=== PATIENT | female | born 1945 | race Caucasian/White ===

== ENCOUNTER 2018-12-05 08:34 | Emergency (ER) | payer MEDICARE, OTHER ==
[~2018-12-05] VITALS: Ht 157.5 cm; Wt 63.6 kg
[2018-12-05] MEDS ORDERED: morphine 4 MG/ML VIAL IV STA (08:43)
[2018-12-05] MEDS ORDERED: ONDANSETRON 4 MG INJ IV STA (08:43)
[2018-12-05 08:45] VITALS: Ht 157.5 cm; Wt 63.6 kg
[2018-12-05] MEDS ORDERED: HYDROmorphONE 0.5 MG/0.5 ML SYG IV STA (08:55)
[2018-12-05] MEDS ORDERED: LORAZEPAM 2 MG INJ IV ONE (09:00)
[2018-12-05] MEDS ORDERED: CETI10TA34 PO (09:36)
[2018-12-05] MEDS ORDERED: COLC0.6T6 PO (09:36)
[2018-12-05] MEDS ORDERED: METO25TA4 PO (09:37)
[2018-12-05] MEDS ORDERED: LISI-313 PO (09:37)
[2018-12-05] MEDS ORDERED: APIX5TAB PO (09:38)
--- NOTE | 2018-12-05 10:00 | ERD ---
ER Documentation Chief Complaint Chief Complaint headache with neck pain x 1 month with chest pain since last night HPI During the patient's encounter translation services were utilized Language: [Yoruba] Source: [in person] 73-year-old female who presents to the emergency room with multiple complaints. The patient's main complaint is a headache. She describes gradual onset occipital headache that is dull and throbbing that started last night. Patient was at a facility trying to obtain an ultrasound of the abdomen when the nurse called 911 for the patient. She potentially noted some chest pain though only states that it is sharp and pinpoint and worse to touch on the right side of the chest. She denies pleuritic pain fevers chills or cough. No exertional symptoms no diaphoresis or nausea. Patient has had chronic symptoms of chest, back, head pain and neck pain for greater than 1 month. The patient has docu mentation that shows a prior history of A. 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 Headache is mild to moderate at this time, throbbing and 5 out of 10. ROS All systems reviewed and are negative except as per history of present illness. Medications Home Meds Reported Medications Apixaban* (Eliquis*) 5 Mg Tablet, 5 MG PO BID, TAB 12/05/18 Metoprolol Tartrate* (Lopressor*) 25 Mg Tablet, 25 MG PO BID, #60 TAB 12/05/18 Lisinopril* (Lisinopril*) 5 Mg Tablet, 5 MG PO DAILY, #30 TAB 12/05/18 Colchicine* (Colcrys*) 0.6 Mg Tablet, 0.6 MG PO BID, TAB 12/05/18 Cetirizine Hcl* (Cetirizine Hcl*) 10 Mg Tab.chew, 10 MG PO DAILY, #30 TAB 12/05/18 Allergies Allergies: Coded Allergies: morphine (Verified Allergy, Severe, TOXIC , 12/05/18) PER PT SISTER FROM SOB FROM MORPHINE Penicillins (Verified Adverse Reaction, Severe, ABDOMINAL PAIN, 12/05/18) PER PT PMhx/Soc History of Surgery: Yes (PACEMAKER) Anesthesia Reaction: No Hx Neurological Disorder: No Hx Respiratory Disorders: No Hx Cardiac Disorders: Yes (PAROXYSMAL AFIB, SSS, HTN, SYNCOPE) Hx Psychiatric Problems: No Hx Miscellaneous Medical Probl: Yes (CIRRHOSIS, AUTOIMMUNE HEPATITIS, THROMBO CYTOPENIA, GERD, FIBROIDS) Hx Alcohol Use: No Hx Substance Use: No Hx Tobacco Use: No Smoking Status: Never smoker FmHx Family History: No diabetes Physical Exam Vitals Vital Signs Date Temp Pulse Resp B/P (MAP) Pulse Ox O2 O2 Flow FiO2 Time Delivery Rate 12/05/18 Nasal 2 08:45 Cannula 12/05/18 98.7 70 16 103/51 98 08:45 (68) Physical Exam General: Well developed, well nourished, no acute distress Head: Normocephalic, atraumatic. Eyes: Pupils equally reactive, EOM intact ENT: Moist mucous membranes Neck: Supple, no lymphadenopathy Respiratory: Lungs clear bilaterally, no distress Cardiovascular: RRR, no murmurs, rubs, or gallops Abdominal: Soft, non-tender, non-distended, no peritoneal signs : Deferred MSK: No edema, no unilateral swelling, 5/5 strength Neurologic: Alert and oriented, moving all extremities, normal speech, no focal weakness, no cerebellar signs, no meningismus Skin: No rash Psych: Normal mood with mild anxiety Result Diagram: 12/05/18 0856 12/05/18 0856 Results 24 hrs Laboratory Tests Test 12/05/18 08:56 White Blood Count 4.1 10^3/ul Red Blood Count 4.55 10^6/ul Hemoglobin 14.4 g/dl Hematocrit 43.0 % Mean Corpuscular Volume 94.5 fl Mean Corpuscular Hemoglobin 31.6 pg Mean Corpuscular Hemoglobin Concent 33.5 g/dl Red Cell Distribution Width 14.0 % Platelet Count 62 10^3/UL Mean Platelet Volume 10.1 fl Immature Granulocytes % 0.200 % Neutrophils % 75.9 % Lymphocytes % 11.7 % Monocytes % 11.5 % Eosinophils % 0.5 % Basophils % 0.2 % Nucleated Red Blood Cells % 0.0 /100WBC Immature Granulocytes # 0.010 10^3/ul Neutrophils # 3.1 10^3/ul Lymphocytes # 0.5 10^3/ul Monocytes # 0.5 10^3/ul Eosinophils # 0.0 10^3/ul Basophils # 0.0 10^3/ul Nucleated Red Blood Cells # 0.0 10^3/ul Sodium Level 142 mmol/L Potassium Level 3.9 mmol/L Chloride Level 106 mmol/L Carbon Dioxide Level 28 mmol/L Anion Gap 8 Blood Urea Nitrogen 13 mg/dl Creatinine 0.74 mg/dl Est Glomerular Filtrat Rate mL/min mL/min Glucose Level 123 mg/dl Calcium Level 9.9 mg/dl Troponin I < 0.012 ng/ml Current Medications Medications Dose Sig/Karen Start Time Status Last (Trade) Ordered Route PRN Stop Time Admin Dose Reason Admin Morphine 4 mg ONCE STAT 12/05/18 DC Sulfate IV 08:43 (morphine) 12/05/18 08:56 Ondansetron 4 mg ONCE STAT 12/05/18 DC 12/05/18 HCl (Zofran IV 08:43 09:12 Inj) 12/05/18 08:44 Lorazepam 0.5 mg ONCE ONCE 12/05/18 DC 12/05/18 (Ativan) IV 09:00 09:12 12/05/18 09:01 0.5 mg ONCE STAT 12/05/18 DC 12/05/18 Hydromorphone IV 08:55 09:12 HCl 12/05/18 08:56 (Dilaudid) Procedures/MDM EKG, MONITORS, & DIAGNOSTIC IMAGING: EKG: I reviewed and interpreted a 12-lead EKG. Rhythm: Normal sinus rhythm ST Changes: No contiguous ST segment elevations T waves: No contiguous T wave inversions Impression: No evidence of acute cardiac ischemia Chest x-ray: I reviewed and interpreted a 1 view of the chest Mediastinum: No enlargement Cardiac silhouette: No cardiomegaly Airspace: Clear lung hong bilaterally without evidence of pneumothorax Bones: No evidence of fracture CTB IMPRESSION: 1. No acute intracranial hemorrhage, transcortical infarction or mass effect. 2. Mild intracranial atherosclerosis and chronic small vessel ischemic changes. 3. Partially empty sella turcica. 4. Mild generalized cerebral volume loss. RPTAT: HFN CXR IMPRESSION: Mild to moderate Cardiomegaly. per radiology read LAB INTERPRETATION: I reviewed the laboratory testing and it shows no evidence of acute process MEDICAL DECISION MAKING: The patient is a multitude of nonspecific complaints. Her main complaint is a headache. The patient states that she asked for a pain pill at the facility but they called 911. She feels strongly about not being admitted to the hospital given that she was recently admitted with thorough workup. Her chest pain is very nonspecific and reproducible. She states a chronic history of this. I do not believe this is consistent with pulmonary embolism dissection or acute coronary syndrome. The patient will benefit from EKG and troponin but I do not believe serial enzymes or inpatient hospitalization is necessary given extremely low pretest probability and chronic symptoms. The patient's headache is unlikely related to serious etiology. The patient does not exhibit any clinical signs or symptoms, and has no risk factors to suggest headache etiology such as subarachnoid hemorrhage, acute vertebral or carotid dissection, intracranial mass, epidural, subdural hematoma, dural venous sinus thrombosis, giant cell arteritis, or pseudotumor cerebri. The patient does have a history of anticoagulation use and headache, CT of the brain would be appropriate. Anxiety symptoms to be playing a role the patient agrees. ER COURSE: * The patient was given pain medication and anxiolysis with dramatic improvement. She is now resting and sleeping comfortably. Headache is improved. * Her laboratory testing and diagnostic imaging showed no evidence of endorgan dysfunction or acute process. * All the patient does have a number of chronic disease that she is appropriately being followed up on an outpatient basis. Her presentation today is not consistent with an emergent medical condition that warrants hospitalization. I believe the patient can be safely discharged with close primary care follow-up. Return precautions were discussed and understood. CONSULTATION: None DISPOSITION PLAN: The patient does not have an identifiable emergent medical condition that warrants inpatient hospitalization at this time. The patient is deemed safe for discharge with outpatient follow-up. We discussed follow up with the patient's primary care doctor within 24 to 48 hours as needed. We also discussed return to the emergency room for worsening symptoms or worsening condition. Outpatient referral: None required Discharge Medications: Continue home medications Departure Diagnosis: Primary Impression: Headache Headache type: unspecified Headache chronicity pattern: acute headache Intractability: not intractable Qualified Codes: R51 - Headache Additional Impressions: History of cirrhosis Thrombocytopenia Chest wall pain Condition: Stable Patient Instructions: Self-Care for Headaches Ref[facility] Usted se vargas hecho un examen mdico de control que le indica que no est en steven condicin que requiera tratamiento urgente en el Departamento de Emergencia. Un estudio ms profundo y el tratamiento de cruz condicin pueden esperar sin ningn riesgo hasta que usted sea atendida/o en el consultorio de cruz mdico o steven cl mars. Es responsabilidad suya arreglar steven maty para el seguimiento del natasha. MANEJO DE CONDICIONES NO URGENTES EN EL FUTURO 1) Si usted tiene un mdico de atencin primaria: Usted debera llamar a cruz mdico de atencin primaria antes de venir al departamento de emergencia. Despus de las horas de consultorio, cruz doctor o cruz asociado/a est disponible por telfono. El mdico o enfermero de steff en el servicio telefnico puede asesorarle por mariela medio para atender el problema, o natasha contrario se puede programar steven maty. 2) Si usted no tiene un mdico de atencin primaria: Llame al mdico o clnica de referencia que aparece abajo mya las horas de consultorio para hacer steven maty para que le vean. CLINICAS: [facility] [phone] [facility] [phone] [facility]. [facility] [phone] [facility]. [place] [address] [phone] [facility] [place] [id number] [phone] [facility]. [phone] [facility] () Usangela se vargas hecho un examen mdico de control que le indica que no est en steven c ondicin que requiera tratamiento urgente en el Departamento de Emergencia. Un estudio ms profundo y el tratamiento de cruz condicin pueden esperar sin ningn riesgo hasta que usted sea atendida/o en el consultorio de cruz mdico o steven clnica. Es responsabilidad suya arreglar steven maty para el seguimiento del natasha. MANEJO DE CONDICIONES NO URGENTES EN EL FUTURO 1) Si usted tiene un mdico de atencin primaria: Usted debera llamar a cruz mdico de atencin primaria antes de venir al departamento de emergencia. Despus de las horas de consultorio, cruz doctor o cruz asociado/a est disponible por telfono. El mdico o enfermero de steff en el servicio telefnico puede asesorarle por mariela medio para atender el problema, o natasha contrario se puede programar steven maty. 2) Si usted no tiene un mdico de atencin primaria: Llame al mdico o condado institucions de referencia que aparece abajo mya las horas de consultorio para hacer steven maty para que le vean. SI USTED NO PUEDE PAGAR PARA MICHELE UN MEDICO puede ir a: [facility] [address] [place] [address] [facility] [address] [place] [address] [facility] [address] [place] [address] [facility] [facility] [address] [place], [place] [id number] Additional Instructions: Llame al doctor MAANA y ranulfo steven MATY PARA DENTRO DE 2-3 CALDERON.Dgale a la secretaria que nosotros le instruimos hacer esta maty.Avise o llame si cruz condicin se empeora antes de la maty. Regresa aqui si peor o no mejor. FREDA PENNY MD Dec 05, 2018 10:00
[2018-12-05 10:24] VITALS: BP 108/65; PULSE 60; RESP 16
== END 2018-12-05 10:46 | disposition home or self-care (01) ==
LOC: E/R 08:34
DX: R51 Headache (principal); R07.89 Other chest pain; D69.6 Thrombocytopenia, unspecified; I10 Essential (primary) hypertension; Z87.19 Personal history of other diseases of the digestive system; Z79.01 Long term (current) use of anticoagulants
CPT/HCPCS: 36415; 70450; 71045; 80048; 84484; 85025; 93005; 96374; 96375; 99285; J1170; J2060; J2405